=== PATIENT | male | born 1950 | race Caucasian/White ===

== ENCOUNTER 2016-07-20 05:06 | Inpatient (IN) | payer MEDICARE, BC ==
[2016-07-14 09:07] VITALS: BP 115/61
[~2016-07-20] VITALS: Ht 167.6 cm; Wt 74.1 kg
[~2016-07-20 05:06] MED LIST: NONE PER PT
[2016-07-20] MEDS ORDERED: LACTATED RINGERS 1,000 ML IV SCH (06:22)
[2016-07-20] MEDS ORDERED: MULT-208 PO (06:25)
[2016-07-20] MEDS ORDERED: NIAC500C3 PO (06:25)
[2016-07-20] MEDS ORDERED: BORON PO (06:25)
[2016-07-20] MEDS ORDERED: CHOL100011 PO (06:27)
[2016-07-20] MEDS ORDERED: LIDOCAINE 1%, 2ML SQ PRN (06:30)
[2016-07-20] MEDS ORDERED: THROMBIN 5,000 UNIT VIAL TP ONE (06:59)
[2016-07-20] MEDS ORDERED: BUPIVACAINE/PF-EPI 0.25% 1:200K ONE (06:59)
[2016-07-20] MEDS ORDERED: HYDROmorphone 2 MG/ML, 1ML ONE (07:17)
[2016-07-20] MEDS ORDERED: MIDAZOLAM 1 MG/ML, 2ML ONE (07:17)
[2016-07-20] MEDS ORDERED: FENTANYL PF 250 MCG/5ML ONE (07:17)
[2016-07-20] MEDS ORDERED: KETOROLAC 30 MG/1 ML ONE (07:24)
[2016-07-20] MEDS ORDERED: EPHEDRINE 50 MG/ML, 1ML ONE (07:24)
[2016-07-20] MEDS ORDERED: GLYCOPYRROLATE 0.2MG/1ML ONE (07:24)
[2016-07-20] MEDS ORDERED: DEXAMETHASONE 4 MG/ML, 1ML ONE (07:24)
[2016-07-20] MEDS ORDERED: ONDANSETRON 2MG/ML, 2ML ONE (07:24)
[2016-07-20] MEDS ORDERED: CEFAZOLIN 1,000 MG ONE (07:24)
[2016-07-20] MEDS ORDERED: NEOSTIGMINE 1 MG/ML, 10ML ONE (07:24)
[2016-07-20] MEDS ORDERED: PROPOFOL 10 MG/ML, 20ML ONE (07:24)
[2016-07-20] MEDS ORDERED: ROCURONIUM 10 MG/ML ONE (07:24)
[2016-07-20] MEDS ORDERED: OXYcodone 5 MG/5 ML ORAL.SOL UDC PO PRN (08:30)
[2016-07-20] MEDS ORDERED: HYDROmorphone 1 MG/ML, 1ML IV PRN (08:30)
[2016-07-20] MEDS ORDERED: LABETALOL 5MG/ML, 20ML IV PRN (08:30)
[2016-07-20] MEDS ORDERED: MEPERIDINE/PF 25MG/0.5ML IVPush PRN (08:30)
[2016-07-20] MEDS ORDERED: PROMETHAZINE 25 MG/ML, 1ML IV PRN (08:30)
[2016-07-20] MEDS ORDERED: MIDAZOLAM 1 MG/ML, 2ML IV PRN (08:30)
[2016-07-20] MEDS ORDERED: FENTANYL PF 100 MCG/2ML IV PRN (08:30)
[2016-07-20] MEDS ORDERED: hydrALAzine 20 MG/ML, 1ML IV PRN (08:30)
[2016-07-20] MEDS ORDERED: ONDANSETRON 2MG/ML, 2ML IVPush PRN (08:30)
[2016-07-20] MEDS ORDERED: METOCLOPRAMIDE 5 MG/ML, 2ML IV PRN (08:30)
[2016-07-20] MEDS ORDERED: ACETAMINOPHEN 325 MG TABLET ONE (11:55)
[2016-07-20] MEDS: ACETAMINOPHEN 325 MG TABLET PO PRN (12:00)
[2016-07-20] MEDS ORDERED: morphine SULFATE 10 MG/ML, 1ML IV PRN (13:30)
[2016-07-20] MEDS ORDERED: TEMAZEPAM 15 MG CAPSULE PO PRN (13:30)
[2016-07-20] MEDS ORDERED: ONDANSETRON 2MG/ML, 2ML IV PRN (13:30)
[2016-07-20] MEDS: D5%-0.45NACL+KCL 20MEQ 1,000 ML IV SCH (15:55)
[2016-07-20] MEDS: CEFAZOLIN PMX 1GM/50ML 50 ML IVPB SCH ×2 (15:55→23:06)
[2016-07-20 15:57] VITALS: BP 121/68
[2016-07-20] MEDS: HYDROcodone/APAP 5/325 TABLET PO PRN ×3 (17:21→23:00)
[2016-07-20 20:05] VITALS: BP 107/61
[2016-07-20 23:53] VITALS: BP 109/67
[2016-07-21] MEDS: D5%-0.45NACL+KCL 20MEQ 1,000 ML IV SCH ×3 (00:56→15:48)
[2016-07-21] MEDS: HYDROcodone/APAP 5/325 TABLET PO PRN ×4 (03:20→15:48)
[2016-07-21 04:04] VITALS: BP 94/58
[2016-07-21 05:56] LABS: HEMOGLOBIN 11.2 g/dL (13.7-18.0)
[2016-07-21 06:29] LABS: BLOOD UREA NITROGEN 7 mg/dL (7-18)
[2016-07-21] MEDS ORDERED: ENOXAPARIN 40 MG/0.4 ML SQ SCH (07:00)
[2016-07-21 07:06] VITALS: BP 111/65
[2016-07-21 13:10] VITALS: BP 92/56
[2016-07-21] MEDS ORDERED: HYDR-3240 PO (16:38)
== END 2016-07-21 16:53 | disposition home or self-care (01) | DRG 716 ==
LOC: ORIP 05:06 → EDBD 07:30 → 4NOR 12:27 → DCLOUNGE 07-21 16:36
PROVIDERS: ADMIT Urology; ATTEND Urology
PROC: 0VB04ZZ Excision of Prostate, Percutaneous Endoscopic Approach (ICD-10-PCS; 2016-07-20)
PROC: 8E0W4CZ Robotic Assisted Procedure of Trunk Region, Percutaneous Endoscopic Approach (ICD-10-PCS; principal; 2016-07-20 07:30)
DX: C61 Malignant neoplasm of prostate (principal); I10 Essential (primary) hypertension; R39.14 Feeling of incomplete bladder emptying
CPT/HCPCS: 36415; 80048; 85014; 85018; 86850; 86900; 88304; 88309; C1729; J0690; J1100; J1170; J1650; J1885; J2250; J2405; J2704; J2710; J3010; J3490; C1760; J3480; J7120